=== PATIENT | female | born 1960 | race Caucasian/White ===

== ENCOUNTER 2020-11-04 09:53 | Emergency (ER) | payer BC ==
--- NOTE | 2020-11-04 10:25 | ERPHSYRPT ---
- History of Present Illness Time Seen by Provider: 11/04/20 10:10 Patient Subjective Stated Complaint: Left leg pain Triage Nursing Assessment: Patient ambulated back to ED and transferred self to bed. Patient A+O X3. Patient's skin pink, warm and dry. Patient complains of left lower leg pain intermitent, sharp pain 5/10. Patient states yesterday morning her left lower leg was red and swollen and painful. Patient states it hurts to bear weight. Patient states she has a hx of DVT. Left lower leg noted to be swollen, red and warm. Negative Sawyer's sign. Patient is currently COVID positive. Physician History: 60 years old female with history of hypertension, hyperlipidemia, remote right lower extremity DVT not on anticoagulation currently, COVID-19 positive few days ago presented in the ER with chief complaint of left lower leg swelling and redness noticed yesterday morning with progressive worsening. Patient described as a dull to sharp pain 5/10 intensity, aggravated with weightbearing and better with being still. He she also noticed gradually increasing redness in the lower calf. Although she does not have any swelling in the thigh but has some pain. No fall or trauma reported. Patient spiked fever day before yesterday" but is afebrile today and her Covid symptoms are getting better. No chest pain palpitations or shortness of breath. Timing/Duration: yesterday Quality: painful Severity: moderate Location: extremities Possible Causes: no cause identified Associated Symptoms: swelling/mass/lumps Allergies/Adverse Reactions: No Known Drug Allergies Allergy (Unverified 11/04/20 09:57) Home Medications: Amlodipine Besylate 5 mg [Norvasc 5 mg] 1 tab PO DAILY 11/04/20 [History] Aspirin 81 gm Chew [Baby Aspirin 81 mg Chew] 1 tab PO DAILY 11/04/20 [History] Atorvastatin Calcium [Lipitor 20MG Tablet] 1 tab PO DAILY 11/04/20 [History] Bupropion HCl [Bupropion Xl] 300 mg PO DAILY 11/04/20 [History] Calcium Carb, Citrate/Vit D3 [Calcium + D3 ER Tablet] 1 tab PO DAILY 11/04/20 [History] Desvenlafaxine Succinate [Pristiq] 1 tab PO DAILY 11/04/20 [History] Esomeprazole Magnesium [Nexium] 1 tab PO DAILY 11/04/20 [History] Meloxicam [Mobic] 1 tab PO DAILY 11/04/20 [History] Olmesartan/Hydrochlorothiazide [Olmesartan-Hctz 20-12.5 mg Tab] 1 tab PO DAILY 11/04/20 [History] Hx Influenza Vaccination/Date Given: Yes Hx Pneumococcal Vaccination/Date Given: No Immunizations Up to Date: Yes Travel Risk - International Travel Have you traveled outside of the country in past 3 weeks: No (N) If Yes, where;: N - Coronavirus Screening Are you exhibiting any of the following symptoms?: No Close contact with a COVID-19 positive Pt in past 14-21 Days: No - Review of Systems Constitutional: No Symptoms Eyes: No Symptoms Ears, Nose, & Throat: No Symptoms Respiratory: Cough Cardiac: No Symptoms Abdominal/Gastrointestinal: No Symptoms Genitourinary Symptoms: No Symptoms Skin: Rash Neurological: No Symptoms Psychological: No Symptoms Endocrine: No Symptoms Hematologic/Lymphatic: No Symptoms Immunological/Allergic: No Symptoms - Past Medical History Pertinent Past Medical History: Yes Neurological History: No Pertinent History ENT History: No Pertinent History Cardiac History: Deep Vein Thrombosis, High Cholesterol, Hypertension Respiratory History: Asthma Endocrine Medical History: No Pertinent History Musculoskeletal History: Osteoarthritis GI Medical History: GERD History: No Pertinent History Psycho-Social History: Depression Female Reproductive Disorders: No Pertinent History - Past Surgical History Past Surgical History: Yes Neuro Surgical History: No Pertinent History Cardiac: No Pertinent History Respiratory: No Pertinent History Gastrointestinal: Cholecystectomy Musculoskeletal: Orthopedic Surgery Female Surgical History: Tubal Ligation Other Surgical History: Left foot surgery 2009 - Social History Smoking Status: Never smoker Exposure to second hand smoke: No Drug Use: none Patient Lives Alone: No - Female History Hx Now: No - Nursing Vital Signs Nursing Vital Signs: Initial Vital Signs Temperature 98.3 F 11/04/20 09:58 Pulse Rate 97 H 11/04/20 09:58 Respiratory Rate 19 11/04/20 09:58 Blood Pressure 163/84 11/04/20 09:58 O2 Sat by Pulse Oximetry 98 11/04/20 09:58 Pain Scale Pain Intensity 4 - Physical Exam General Appearance: no apparent distress Eye Exam: eyes nml inspection Ears, Nose, Throat Exam: normal ENT inspection, pharynx normal Neck Exam: normal inspection, non-tender, supple, full range of motion Respiratory Exam: normal breath sounds, lungs clear Cardiovascular Exam: regular rate/rhythm, normal heart sounds Gastrointestinal/Abdomen Exam: soft, normal bowel sounds Back Exam: normal inspection, normal range of motion Extremity Exam: inflammation, swelling, tenderness (Left lower leg area of circumferential redness and spreading upward in the calf. No warmth. Minimally tender. Blanchable.) Neurologic Exam: alert, oriented x 3, cooperative SpO2 Interpretation: normal SpO2: 98 O2 Delivery: Room Air Ordered Tests: Active Orders 24 hr Category Date Time Status VENOUS UNILAT/LIMITED EXTREMIT [US] Stat Exams 11/04/20 11:45 Completed BLOOD CULTURE Stat Lab 11/04/20 10:16 Received CBC W DIFF Stat Lab 11/04/20 10:16 Completed CMP Stat Lab 11/04/20 10:16 Completed Medication Summary Discontinued Medications Generic Name Dose Route Start Last Admin Trade Name Freq PRN Reason Stop Dose Admin Clindamycin HCl/Dextrose 900 mg in 50 mls @ 100 mls/hr 11/04/20 11:50 11/04/20 12:36 Clindamycin-D5w 900 Mg/50 Ml IV 11/04/20 12:19 Infused STAT STA Infusion Clindamycin HCl/Dextrose Confirm 11/04/20 12:01 Clindamycin-D5w 900 Mg/50 Ml Administered 11/04/20 12:02 Dose 900 mg in 50 mls @ ud IV .[facility] Lab/Rad Data: Laboratory Result Diagrams 11/04/20 10:16 11/04/20 10:16 Laboratory Results 11/04/20 11/04/20 Range/Units 10:16 10:16 WBC 5.7 (4.0-10.5) K/mm3 RBC 4.66 (4.1-5.4) M/mm3 Hgb 12.3 (12.0-16.0) gm/dl Hct 38.8 (35-47) % MCV 83.3 (78-100) fl MCH 26.4 (26-32) pg MCHC 31.7 L (32-36) g/dl RDW 15.1 H (11.5-14.0) % Plt Count 144 L (150-450) K/mm3 MPV 10.7 (7.5-11.0) fl Gran % 72.3 H (36.0-66.0) % Eos # (Auto) 0 (0-0.5) Absolute Lymphs (auto) 1.14 (1.0-4.6) Absolute Monos (auto) 0.43 (0.0-1.3) Lymphocytes % 20.1 L (24.0-44.0) % Monocytes % 7.6 (0.0-12.0) % Eosinophils % 0.0 (0.00-5.0) % Basophils % 0.0 (0.0-0.4) % Absolute Granulocytes 4.11 (1.4-6.9) Basophils # 0 (0-0.4) Sodium 135 L (137-145) mmol/L Potassium 3.7 (3.5-5.1) mmol/L Chloride 102 (98-107) mmol/L Carbon Dioxide 26 (22-30) mmol/L Anion Gap 10.4 (5-15) MEQ/L BUN 15 (7-17) mg/dL Creatinine 1.08 H (0.52-1.04) mg/dL Estimated GFR 54.8 ML/MIN Glucose 121 H (74-106) mg/dL Calcium 8.6 (8.4-10.2) mg/dL Total Bilirubin 0.60 (0.2-1.3) mg/dL AST 28 (14-36) U/L ALT 22 (0-35) U/L Alkaline Phosphatase 71 (38-126) U/L Serum Total Protein 7.3 (6.3-8.2) g/dL Albumin 4.0 (3.5-5.0) g/dL - Progress Progress: unchanged, re-examined Progress Note: 11/04/20 12:28 No DVT. Patient is offered pain medication which she refused. I believe patient is having cellulitis and will treat with antibiotics. She is given a dose of clindamycin in here. Patient is a high risk to develop DVT, although initial scan is negative, recommended outpatient follow-up and if worsening may need to repeat ultrasound. At this point do not think patient needs any further work-up . She has COVID-19 positive but does not have any trouble breathing and her fever is improved and is stable for discharge. Counseled pt/family regarding: lab results, diagnosis, need for follow-up, rad results - Departure Departure Disposition: Home Clinical Impression: Left leg cellulitis Condition: Stable Critical Care Time: No Referrals: ALLIE BANKS [Primary Care Provider] - Additional Instructions: Follow-up with your primary care physician for reevaluation in 2 days. You may need another DVT scan/ultrasound in 5 to 7 days. Continue with antibiotics. Keep it elevated. Avoid exertional activities. Return to ER for increasing swelling redness or if develop fever chills or worsening pain. Prescriptions: Clindamycin HCl 150 mg [Cleocin 150 mg Capsule] 2 cap PO QID #56 capsule
[2020-11-04 10:42] LABS: Absolute Neutrophil Ct (ANC) 4.11 (1.4-6.9); Basophil (Absolute #) 0 (0-0.4); Eosinophil (Absolute #) 0 (0-0.5); Hematocrit 38.8 % (35-47); Hemoglobin 12.3 gm/dl (12.0-16.0); Lymphocyte (Absolute #) 1.14 (1.0-4.6); Lymphocytes % 20.1 % (24.0-44.0); Mean Cell Volume 83.3 fl (78-100); Mean Corpuscular Hemoglobin 26.4 pg (26-32); Mean Corpuscular Hgb Concent. 31.7 g/dl (32-36); Mean Platelet Volume 10.7 fl (7.5-11.0); Monocyte (Absolute #) 0.43 (0.0-1.3); Monocytes % 7.6 % (0.0-12.0); Neutrophil % 72.3 % (36.0-66.0); Platelet Count 144 K/mm3 (150-450); Red Blood Count 4.66 M/mm3 (4.1-5.4); Red Cell Distribution Width 15.1 % (11.5-14.0); White Blood Count 5.7 K/mm3 (4.0-10.5)
[2020-11-04 10:48] LABS: ANION GAP 10.4 MEQ/L (5-15); BILIRUBIN,TOTAL 0.6 mg/dL (0.2-1.3); Calcium 8.6 mg/dL (8.4-10.2); Creatinine 1 1.08 mg/dL (0.52-1.04); EST GLOMERULAR FILTRATION RATE 54.8 ML/MIN; Potassium 3.7 mmol/L (3.5-5.1); Total Protein 7.3 g/dL (6.3-8.2)
[2020-11-04] MEDS ORDERED: CLINDAMYCIN-D5W 900 MG/50 ML*** 900 MG/50 ML BAG IV STA (11:50)
[2020-11-04] MEDS ORDERED: CLINDAMYCIN-D5W 900 MG/50 ML*** 900 MG/50 ML BAG IV ONE (12:01)
[2020-11-04 12:36] VITALS: BP 127/82; PULSE 77
--- NOTE | 2020-11-04 15:52 | XRAY ---
Indication: Left calf erythema/swelling. Two-dimensional sonogram and color Doppler imaging of the major venous vessels of the left leg was performed. Comparison: December 01, 2008. No thrombus seen in the examined deep venous vessels of the left leg including greater saphenous vein. Veins demonstrate normal compressibility. Venous waveforms are normal with and without augmentation. Impression: Left leg again negative for DVT. Comment: Preliminary report was given.
[2020-11-04 21:47] VITALS: O2SAT 98
== END 2020-11-04 12:56 | disposition home or self-care (01) ==
LOC: ED 09:53
DX: L03.116 Cellulitis of left lower limb (principal); M79.662 Pain in left lower leg; I10 Essential (primary) hypertension; E78.5 Hyperlipidemia, unspecified
CPT/HCPCS: 36000; 36415; 80053; 85025; 87040; 93971; 99284